=== PATIENT | male | born 1995 | race Caucasian/White ===

== ENCOUNTER 2018-06-27 14:57 | Inpatient (IN) ==
[2018-06-27 15:53] LABS: Bilirubin,Urine Small (Negative); Blood,Urine Negative (Negative); Clarity,Urine Clear (Clear); Color,Urine Dark Yellow (Yellow); Glucose,Urine (UA) Normal (Normal); Ketones,Urine 15 mg/dL (Negative); Leukocyte Esterase,Urine Negative (Negative); Nitrite,Urine Negative (Negative); PH,Urine 5.5 pH Units (5.0-8.0); Protein,Urine 100 mg/dL (Neg-Trace); Specific Gravity,Urine > 1.030 (1.010-1.025); Urobilinogen,Urine Normal (Normal)
[2018-06-27 15:55] LABS: Bacteria,Urine None Seen per hpf (None-Few); Hyaline Casts,Urine Few per lpf (None-Few); Squamous Epithelial Cell,Urine Moderate per lpf (None-Few); WBC,Urine 0-3 per hpf (0-3)
[2018-06-27 16:04] LABS: Amphetamine Screen,Urine Positive ng/mL (Cutoff=1000); Barbiturate Screen,Urine Negative ng/mL (Cutoff=200); Benzodiazepines Screen,Urine Negative ng/mL (Cutoff=200); Cannabinoid Screen,Urine Negative ng/mL (Cutoff = 50); Cocaine Screen,Urine Negative ng/mL (Cutoff= 300); Opiate Screen,Urine Negative ng/mL (Cutoff=300); Phencyclidine Screen,Urine Negative ng/mL (Cutoff=25)
--- NOTE | 2018-06-27 17:00 | Emergency Department Note ---
Disposition Clinical Impression: Suicidal ideation, Homicidal ideation, Methamphetamine abuse Disposition: Admitted As Inpatient Condition: Fair Time of Disposition: 20:46 Psych HPI - General Chief Complaint: ED Psychiatric Symptoms Stated Complaint: SI/HI Time Seen by Provider: 06/27/18 15:10 Source: patient Mode of arrival: ambulatory Limitations: no limitations Nursing Notes Reviewed: Yes Vital Signs Reviewed: Yes - History of Present Illness HPI Narrative: Patient is a 23-year-old male who presents to [facility] ED with a chief complaint of suicidal and homicidal ideation. States over the last few weeks he has been having these thoughts. States his plan is to stab himself and stabbed his girlfriend. Patient does admit to having firearms present in the house as well. Denies any prior attempts. However states he has been evaluated by a psychiatrist in the past but did not go back since the debbie asked to many questions. States he does have some intermittent sharp chest pains. No difficulty breathing, abdominal pain, problems with urination or bowel movements. Denies any nausea, vomiting, fever or chills. No problems with urination or bowel movements. Pt complaint: suicidal ideation, medical clearance request If medical clearance, reason: psychiatric condition Onset (ago): Just [employer] Duration: getting worse History of similar episodes: No Improves with: none Worsens with: none Context: recent drug abuse (meth) Alleged intoxication: No Associated Psychiatric Symptoms: suicidal ideation, homicidal ideation Associated symptoms: Denies: shortness of breath, nausea, vomiting Traumatic symptoms: denies traumatic injury Treatments prior to arrival: none Self harm or harm to others: admits thoughts of self harm, has plan, admits thoughts of harming others - Related Data Previous Rx's Medication Instructions Recorded Azithromycin [Zithromax] 250 mg PO DAILY #4 tablet 07/06/17 Loratadine/Pseudophed (12 HR) 1 each PO BID #[id number].er.[id number] 07/06/17 [Claritin D (12HR)] PredniSONE [Deltasone] 40 mg PO DAILY 4 Days tablet 07/06/17 Allergies Allergy/AdvReac Type Severity Reaction Status Date / Time No Known Allergies Allergy Verified 07/05/17 23:57 All systems ED: reviewed and negative except as stated. Past Medical History - Past Medical History Attestation: Yes The following information was validated with the patient. Source: patient Medical history: Reports: asthma Psychiatric history: Reports: no psych history - Social History Smoking Status: Current every day smoker Alcohol use: Reports: none Drug use: Reports: none Physical Exam - General Limitations: no limitations General appearance: alert - Head Head exam: atraumatic, normocephalic, normal inspection - Eye Eye exam: Present: EOMI - ENT ENT exam: normal exam, normal oropharynx, mucous membranes moist - Neck Neck exam: Present: normal inspection, full ROM, trachea midline - Chest Chest inspection: Present: normal inspection, symmetric chest wall rise - Respiratory Respiratory exam: Present: normal lung sounds bilaterally - Cardiovascular Cardiovascular exam: Present: normal rhythm, tachycardia, normal heart sounds - Abdominal Exam Abdominal exam: Present: soft, Non-Tender. Absent: tenderness, distention, guarding, rebound, rigidity - Extremities Exam Extremities exam: Present: normal inspection, full ROM. Absent: tenderness, pedal edema - Back Exam Back exam: Present: normal inspection, full ROM. Absent: tenderness - Neurological Exam Neurological exam: Present: alert, oriented X3 - Psychiatric Psychiatric exam: Present: normal affect, normal mood - Skin Skin exam: Present: warm, dry, intact, normal color Course Course Narrative: Patient seen and examined. Complaints of suicidal and homicidal ideation with a plan of stabbing himself and his girlfriend. Also complaining of some intermittent sharp chest pains that started 2 weeks ago not related to any exertional activities. We will get an EKG and chest x-ray as well as med clearance labwork. - Reevaluation(s) Reevaluation #1: Awaiting 1A eval and dispo. Time: 20:46 Vital Signs Temperature 99.4 F 06/27/18 15:00 Pulse Rate 121 06/27/18 15:00 Respiratory Rate 20 06/27/18 15:00 Blood Pressure 143/84 06/27/18 15:00 O2 Sat by Pulse Oximetry 97 06/27/18 15:00 Temperature 99.4 F 06/27/18 15:21 Pulse Rate 87 06/27/18 19:41 Respiratory Rate 20 06/27/18 19:41 Blood Pressure 116/68 06/27/18 19:41 O2 Sat by Pulse Oximetry 98 06/27/18 19:41 Oxygen Delivery Oxygen Delivery Room Air Psych - Medical Records Medical records reviewed: Yes I reviewed the patient's medical records. - Lab Data Lab results reviewed: Yes I reviewed the patient's lab results. Result diagrams: 06/27/18 16:43 06/27/18 16:43 Lab Results 06/27/18 06/27/18 06/27/18 Range/Units 15:28 15:28 16:43 WBC 15.3 H (4.3-11.1) K/mcL RBC 5.75 H (4.19-5.50) M/mcL Hgb 16.4 (12.9-16.9) g/dL Hct 48.5 (37.5-50.1) % MCV 84.3 (83.0-100.0) fL MCH 28.5 (28.0-33.3) pg MCHC 33.8 (31.6-35.5) g/dL RDW 13.6 (11.5-14.5) % Plt Count 277 (140-400) K/mcL MPV 10.8 (9.4-12.4) fL Immature Gran % 0.4 (0-4) % Seg Neutrophils % 78.3 % Lymphocytes % 14.2 % Monocytes % 6.3 % Eosinophils % 0.5 % Basophils % 0.3 % Neutrophils # 12.0 H (1.6-8.9) K/mcL Lymphocytes # 2.2 (0.6-4.6) K/mcL Monocytes # 1.0 (0.0-1.3) K/mcL Eosinophils # 0.1 (0.0-0.6) K/mcL Basophils # 0.1 (0.0-0.2) K/mcL Sodium (136-145) mEq/L Potassium (3.5-5.1) mEq/L Chloride (98-107) mEq/L Carbon Dioxide (23-29) mEq/L BUN (6-20) mg/dL Creatinine (0.70-1.30) mg/dL Est GFR ( Amer) (> 60) Est GFR (Non-Af Amer) (> 60) BUN/Creatinine Ratio (6-26) Glucose (70-105) mg/dL Calculated Osmolality (280-300) Calcium (8.6-10.3) mg/dL TSH (0.340-5.600) mcIU/mL Urine Color Dark Yellow (Yellow) Urine Clarity Clear (Clear) Urine pH 5.5 (5.0-8.0) pH Units Ur Specific [place] > 1.030 H (1.010-1.025) Urine Protein 100 H (Neg-Trace) mg/dL Urine Glucose (UA) Normal (Normal) mg/dL Urine Ketones 15 H (Negative) mg/dL Urine Blood Negative (Negative) Urine Nitrite Negative (Negative) Urine Bilirubin Small H (Negative) Urine Urobilinogen Normal (Normal) mg/dL Ur Leukocyte Esterase Negative (Negative) Urine Microscopic RBC 5-15 H (0-3) per hpf Urine Microscopic WBC 0-3 (0-3) per hpf Ur Squamous Epith Cells Moderate H (None-Few) per lpf Urine Bacteria None Seen (None-Few) per hpf Hyaline Casts Few (None-Few) per lpf Salicylates (15.0-30.0) mg/dL Urine Opiates Screen Negative (Iaginn=962) ng/mL Acetaminophen (10-20) mcg/mL Ur Barbiturates Screen Negative (Pzpyzw=183) ng/mL Ur Phencyclidine Scrn Negative (Cutoff=25) ng/mL Ur Amphetamines Screen Positive H (Fudxed=9240) ng/mL U Benzodiazepines Scrn Negative (Ihtjiv=619) ng/mL Urine Cocaine Screen Negative (Cutoff= 300) ng/mL U Marijuana (THC) Screen Negative (Cutoff = 50) ng/mL Ur Drug Screen Interp See Below Ethyl Alcohol (Less than 10) mg/dL 06/27/18 06/27/18 Range/Units 16:43 16:43 WBC (4.3-11.1) K/mcL RBC (4.19-5.50) M/mcL Hgb (12.9-16.9) g/dL Hct (37.5-50.1) % MCV (83.0-100.0) fL MCH (28.0-33.3) pg MCHC (31.6-35.5) g/dL RDW (11.5-14.5) % Plt Count (140-400) K/mcL MPV (9.4-12.4) fL Immature Gran % (0-4) % Seg Neutrophils % % Lymphocytes % % Monocytes % % Eosinophils % % Basophils % % Neutrophils # (1.6-8.9) K/mcL Lymphocytes # (0.6-4.6) K/mcL Monocytes # (0.0-1.3) K/mcL Eosinophils # (0.0-0.6) K/mcL Basophils # (0.0-0.2) K/mcL Sodium 138 (136-145) mEq/L Potassium 3.2 L (3.5-5.1) mEq/L Chloride 108 H (98-107) mEq/L Carbon Dioxide 20 L (23-29) mEq/L BUN 11 (6-20) mg/dL Creatinine 0.80 (0.70-1.30) mg/dL Est GFR ( Amer) > 60 (> 60) Est GFR (Non-Af Amer) > 60 (> 60) BUN/Creatinine Ratio 14 (6-26) Glucose 103 (70-105) mg/dL Calculated Osmolality 286 (280-300) Calcium 9.7 (8.6-10.3) mg/dL TSH 0.911 (0.340-5.600) mcIU/mL Urine Color (Yellow) Urine Clarity (Clear) Urine pH (5.0-8.0) pH Units Ur Specific [place] (1.010-1.025) Urine Protein (Neg-Trace) mg/dL Urine Glucose (UA) (Normal) mg/dL Urine Ketones (Negative) mg/dL Urine Blood (Negative) Urine Nitrite (Negative) Urine Bilirubin (Negative) Urine Urobilinogen (Normal) mg/dL Ur Leukocyte Esterase (Negative) Urine Microscopic RBC (0-3) per hpf Urine Microscopic WBC (0-3) per hpf Ur Squamous Epith Cells (None-Few) per lpf Urine Bacteria (None-Few) per hpf Hyaline Casts (None-Few) per lpf Salicylates < 2.5 L (15.0-30.0) mg/dL Urine Opiates Screen (Jaivzn=898) ng/mL Acetaminophen < 10 L (10-20) mcg/mL Ur Barbiturates Screen (Zxlbks=489) ng/mL Ur Phencyclidine Scrn (Cutoff=25) ng/mL Ur Amphetamines Screen (Ajynhg=4854) ng/mL U Benzodiazepines Scrn (Kphdeh=380) ng/mL Urine Cocaine Screen (Cutoff= 300) ng/mL U Marijuana (THC) Screen (Cutoff = 50) ng/mL Ur Drug Screen Interp Ethyl Alcohol < 10 (Less than 10) mg/dL - Radiology Data Radiology results reviewed: Yes I reviewed the patient's radiology results. - EKG Data EKG attestation: Yes I reviewed and interpreted this EKG. EKG results narrative: EKG done at 1715 shows sinus tachycardia with a rate of [address] elevation or depression noted. Normal axis. Psychiatric Medical Clearance - Medical Clearance Checklist Does the patient have a NEW psychiatric condition?: Yes Any abnormalities indicating possible medical illness?: No Any history of medical issues?: No Medical History: No Social History Section defined Any abnormal vital signs prior to transfer?: No Current Vitals: Last Vital Signs Temp 99.4 F 06/27/18 15:21 Pulse 87 06/27/18 19:41 Resp 20 06/27/18 19:41 BP 116/68 06/27/18 19:41 Pulse Ox 98 06/27/18 19:41 Is the patient intoxicated or cognitively impaired?: No Psychiatric Lab Panel: Drug Levels and Toxicity 06/27/18 06/27/18 15:28 16:43 Urine Opiates Screen Negative Acetaminophen < 10 L Ur Barbiturates Screen Negative Ur Phencyclidine Scrn Negative Ur Amphetamines Screen Positive H U Benzodiazepines Scrn Negative Urine Cocaine Screen Negative U Marijuana (THC) Screen Negative Ethyl Alcohol < 10 Any abnormalities on the physical exam?: No Any abnormal labs?: No Abnormal Labs: Abnormal lab results WBC 15.3 K/mcL (4.3-11.1) H 06/27/18 16:43 RBC 5.75 M/mcL (4.19-5.50) H 06/27/18 16:43 Neutrophils # 12.0 K/mcL (1.6-8.9) H 06/27/18 16:43 Potassium 3.2 mEq/L (3.5-5.1) L 06/27/18 16:43 Chloride 108 mEq/L (98-107) H 06/27/18 16:43 Carbon Dioxide 20 mEq/L (23-29) L 06/27/18 16:43 Ur Specific [place] > 1.030 (1.010-1.025) H 06/27/18 15:28 Urine Protein 100 mg/dL (Neg-Trace) H 06/27/18 15:28 Urine Ketones 15 mg/dL (Negative) H 06/27/18 15:28 Urine Bilirubin Small (Negative) H 06/27/18 15:28 Urine Microscopic RBC 5-15 per hpf (0-3) H 06/27/18 15:28 Ur Squamous Epith Cells Moderate per lpf (None-Few) H 06/27/18 15:28 Salicylates < 2.5 mg/dL (15.0-30.0) L 06/27/18 16:43 Acetaminophen < 10 mcg/mL (10-20) L 06/27/18 16:43 Ur Amphetamines Screen Positive ng/mL (Qaoqqt=9513) H 06/27/18 15:28 Does the patient require durable medical equiptment?: No Is the patient ambulatory?: Yes Is the patient a fall risk?: No Has the patient been medically cleared?: Yes Any acute medical condition require Tx prior to transfer?: No Attestation Statement - Attestation Attestation: I, Phu Chacon, examined this patient and my medical decision-making was reviewed with the BONBON DIPPER/PA/Advanced Practice Nurse/Resident Physician. I agree with the documented findings, disposition and treatment plan as described except to the extent set forth below. 23-year-old male presents emergency department for further evaluation of suicidal or homicidal ideation. Patient has been using a large amount of methamphetamines over the past few days, he had believed that somebody was going to kill him. Patient had apparently made statements to the significant other and her mother that he was going to kill himself and his significant other. Patient's plan was to stab himself and his significant other. Patient reports having the symptoms intermittently over the past few days. Patient will be medically cleared and evaluated by behavioral health. Disposition pending at this time. Patient evaluated by behavioral health and found him to require inpatient treatment. Patient will be admitted to the hospital to1A
[2018-06-27 17:08] LABS: Basophils # 0.1 K/mcL (0.0-0.2); Basophils % 0.3 %; Eosinophils # 0.1 K/mcL (0.0-0.6); Eosinophils % 0.5 %; Hematocrit 48.5 % (37.5-50.1); Hemoglobin 16.4 g/dL (12.9-16.9); Immature Granulocytes % 0.4 % (0-4); Lymphocytes # 2.2 K/mcL (0.6-4.6); Lymphocytes % 14.2 %; Mean Corpuscular HGB Conc 33.8 g/dL (31.6-35.5); Mean Corpuscular Hemoglobin 28.5 pg (28.0-33.3); Mean Corpuscular Volume 84.3 fL (83.0-100.0); Mean Platelet Volume 10.8 fL (9.4-12.4); Monocytes % 6.3 %; Platelet Count 277 K/mcL (140-400); Red Blood Count 5.75 M/mcL (4.19-5.50); Red Cell Distribution Width 13.6 % (11.5-14.5); Segmented Neutrophils % 78.3 %
[2018-06-27 17:47] LABS: Acetaminophen < 10 mcg/mL (10-20); BUN/Creatinine Ratio 14 (6-26); Blood Urea Nitrogen 11 mg/dL (6-20); Calcium 9.7 mg/dL (8.6-10.3); Carbon Dioxide 20 mEq/L (23-29); Chloride 108 mEq/L (98-107); Ethanol < 10 mg/dL (Less than 10); Glucose 103 mg/dL (70-105); Osmolality,Calculated 286 (280-300); Potassium 3.2 mEq/L (3.5-5.1); Salicylate < 2.5 mg/dL (15.0-30.0); Sodium 138 mEq/L (136-145); eGFR For Non-African Americans > 60 (> 60)
[2018-06-27] MEDS ORDERED: Potassium Chloride Elixir 20 MEQ/15 ML UDC PO ONE (18:08)
[2018-06-27] MEDS ORDERED: *HR* LORazepam 2 MG/ML VIAL IM PRN (23:06)
[2018-06-27] MEDS ORDERED: *HR* LORazepam 1 MG TABLET PO PRN (23:06)
[2018-06-27] MEDS ORDERED: MOM Conc 10 ML UD.LIQ PO PRN (23:06)
[2018-06-27] MEDS ORDERED: Mag Hydrox/Al Hydrox/Simeth 30 ML UDC PO PRN (23:06)
[2018-06-27] MEDS ORDERED: Haloperidol Lactate 5 MG/ML VIAL IM PRN (23:06)
[2018-06-27] MEDS: Nicotine 2 MG GUM BC PRN (23:50)
[2018-06-27] MEDS: traZODone 50 MG TABLET PO PRN (23:51)
[2018-06-28] MEDS ORDERED: *HR* LORazepam 1 MG TABLET PO PRN (03:05)
[2018-06-28] MEDS ORDERED: *HR* LORazepam 2 MG/ML VIAL IM PRN (03:05)
[2018-06-28] MEDS: Nicotine 2 MG GUM BC PRN (09:59)
--- NOTE | 2018-06-28 11:20 | Psychiatry History & Physical ---
Date of Encounter: 06/28/18 Time of Encounter: 10:30 History of Present Illness Patient Stated Chief Complaint: I was having thoughts to harm myself while I was high Medicare Admission Attestation: For traditional Medicare patients the provided hospital inpatient services are reasonable and necessary and in the case of services not specified as inpatient -only under 42 CFR 419.22 (n), that they are appropriately provided as inpatient services in accordance 42 CFR 412.3. For Critical Access Hospital the patient may reasonably be expected to be discharged or transferred to a hospital within 96 hours after admission to the Critical Access Hospital. History of Present Illness: Upon admssion to the ER, Patient is a 23-year-old male who presents to [facility] ED with a chief complaint of suicidal and homicidal ideation. States over the last few weeks he has been having these thoughts. States his plan is to stab himself and stabbed his girlfriend. Patient does admit to having firearms present in the house as well. Denies any prior attempts. However states he has been evaluated by a psychiatrist in the past but did not go back since the debbie asked to many questions. States he does have some intermittent sharp chest pains. No difficulty breathing, abdominal pain, problems with urination or bowel movements. Denies any nausea, vomiting, fever or chills. No problems with urination or bowel movements. Pt is a 23 yo ,, male, never , with 1 son 7 yo who presents for depression, anxiety and suicidal/homicidal ideations. Pt noted he currently lives in [place], [place] with my mom and dad. Pt noted recent exacerbation of depression. Pt states when I came in I thought I wanted to hurt myself. Pt noted I came in because I needed some help I feel much better now. I feel safe and comfortable on the unit. Pt denied any side effects to current medications. Pt was in agreement with current treatment plan. Pt noted that he is doing alright today. Pt noted he slept 12 hours. Pt noted his appetite is I can eat but I am not really hungry. Pt rated his depression a 2, on a scale of zero to ten with ten being the worst and zero being none. Pt rate his anxiety a 6....I don't like hospitals, on the same scale. Pt denied any auditory or visual hallucinations. Pt denied any current thoughts to harm himself or anyone else. PT noted his mom and dad are still alive and live with pt. Pt noted that his highest level of education is [employer] with vocational school and [employer]. Pt noted he is currently unemployed due to "relationship problems and drug use."Pt denied any inpt psychiatric hospitalizations. Pt denied any previous suicide attempts. Pt denied any family hx of suicides. PT denied any family mental health hx. Pt denied TBI, Seizures, HEP C or HIV. No TD noted, AIMS=0 MSE: Alert and Oriented x3 Appearance: appropriately groomed dressed in civilian attire Behavior: Polite, friendly, courteous Speech: fluent, normal tone, normal rate Mood: better but I am depression Affect: mood congruent Thought content: no HI noted, no SI noted, no delusions noted Psychosis: none noted, currently does not appear to be responding to internal stimuli. Thought Process: linear logical, goal directed Judgment: fair. Insight: fair. Assessment/Plan 1. Interval hx 2. Continue current medications 3. Review current labs 4. Pt had an opportunity to ask questions and discuss current treatment plan. 5. Supportive therapy was provided 6. Pt encouraged to consider group or individual therapy 7. Pt was in agreement with treatment plan. 8. Pt was educated on the risks benefits and side effects of current medications. 9. Start wellbutrin 150 mg PO QAM for mood/amphetamine addicition. Past Med Surg Social Fam HX - Past Medical History Medical history: asthma - Past Psychiatric History Psychiatric history: Reports: depression Family psychiatric history: No Family History of Suicide: None - Social History Smoking Status: Current every day smoker Alcohol use: none Drug use: none Medications & Allergies No Known Home Drugs 06/28/18 [History] 3 Allergy/AdvReac Type Severity Reaction Status Date / Time No Known Allergies Allergy Verified 06/28/18 10:34 Review of Systems Constitutional: Denies: fever, chills, weakness, weight change Eyes: Denies: eye pain, vision change Ears, Nose, Throat: Denies: ear pain, throat pain, dental pain, hearing loss, congestion Cardiovascular: Denies: chest pain, palpitations, dyspnea on exertion Respiratory: Denies: cough, dyspnea, wheezes Gastrointestinal: Denies: abdominal pain, nausea, vomiting, diarrhea, constipation Genitourinary male: Denies: urgency, dysuria, frequency, genital lesions Musculoskeletal: Denies: joint swelling, joint pain Integumentary: Denies: rash, lesions, pruritus Neurological: Denies: headache, weakness, numbness, memory loss Psychiatric: Reports: depression, anxiety, suicidal ideation, homicidal ideation Endocrine: Denies: fatigue, heat or cold intolerance Hematologic/Lymphatic: Denies: easy bruising, lymphadenopathy Allergic/Immunologic: Denies: urticaria, itchy eyes Exam - HEENT Head exam IM: Present: atraumatic Eye exam IM: Present: EOMI, normal appearance, PERRL ENT exam IM: Present: normal exam - Neurological Neurological exam: Present: CN II-XII intact - Respiratory Respiratory exam IM: Present: CTAB - GI/Abdominal GI/Abdominal exam IM: Present: normal bowel sounds, soft. Absent: tenderness - Extremities Extremities exam IM: Present: full ROM - Skin Skin exam IM: Present: dry, warm - Constitutional Vitals: Temp Pulse Resp BP Pulse Ox 98.2 F 98 18 135/75 98 06/28/18 09:00 06/28/18 09:00 06/28/18 09:00 06/28/18 09:00 06/27/18 19:41 General appearance: age & developmentally appropriate, well-groomed, well- nourished - Musculoskeletal Gait: normal Station: relaxed Strength & Tone: normal for patient - Psychiatric Patient Orientation: Yes Person, Yes Time, Yes Place Level of alertness: Alert Behavior: calm, cooperative, agitated Psychomotor activity: Normal Eye Contact: Maintains Eye Contact Mood Description: Euthymic/stable Affect description: congruent with mood, full range Speech Volume: Normal Speech pattern: normal rate, normal rhythm, normal tone, fluent, spontaneous Language & Vocabulary: consistent with education Thought Process: Logical, Linear, Goal Oriented Thought Content: Yes Suicidal ideation, No Homicidal ideation, No Overt delusions Perceptual Disturbances: No Auditory hallucinations, No Visual hallucinations Attention Span Ability: Capable of Focused Attention Memory Description: Grossly Intact Patient Reliability: Reliable Historian Fund of knowledge: Yes abstraction ability, Yes average, Yes aware of current events Intelligence Estimate: Average Judgment: Limited Insight: Partial Results - Labs Labs: Laboratory Last Values WBC 15.3 K/mcL (4.3-11.1) H 06/27/18 16:43 RBC 5.75 M/mcL (4.19-5.50) H 06/27/18 16:43 Hgb 16.4 g/dL (12.9-16.9) 06/27/18 16:43 Hct 48.5 % (37.5-50.1) 06/27/18 16:43 MCV 84.3 fL (83.0-100.0) 06/27/18 16:43 MCH 28.5 pg (28.0-33.3) 06/27/18 16:43 MCHC 33.8 g/dL (31.6-35.5) 06/27/18 16:43 RDW 13.6 % (11.5-14.5) 06/27/18 16:43 Plt Count 277 K/mcL (140-400) 06/27/18 16:43 MPV 10.8 fL (9.4-12.4) 06/27/18 16:43 Immature Gran % 0.4 % (0-4) 06/27/18 16:43 Seg Neutrophils % 78.3 % 06/27/18 16:43 Lymphocytes % 14.2 % 06/27/18 16:43 Monocytes % 6.3 % 06/27/18 16:43 Eosinophils % 0.5 % 06/27/18 16:43 Basophils % 0.3 % 06/27/18 16:43 Neutrophils # 12.0 K/mcL (1.6-8.9) H 06/27/18 16:43 Lymphocytes # 2.2 K/mcL (0.6-4.6) 06/27/18 16:43 Monocytes # 1.0 K/mcL (0.0-1.3) 06/27/18 16:43 Eosinophils # 0.1 K/mcL (0.0-0.6) 06/27/18 16:43 Basophils # 0.1 K/mcL (0.0-0.2) 06/27/18 16:43 Sodium 138 mEq/L (136-145) 06/27/18 16:43 Potassium 3.2 mEq/L (3.5-5.1) L 06/27/18 16:43 Chloride 108 mEq/L (98-107) H 06/27/18 16:43 Carbon Dioxide 20 mEq/L (23-29) L 06/27/18 16:43 BUN 11 mg/dL (6-20) 06/27/18 16:43 Creatinine 0.80 mg/dL (0.70-1.30) 06/27/18 16:43 Est GFR ( Amer) > 60 (> 60) 06/27/18 16:43 Est GFR (Non-Af Amer) > 60 (> 60) 06/27/18 16:43 BUN/Creatinine Ratio 14 (6-26) 06/27/18 16:43 Glucose 103 mg/dL (70-105) 06/27/18 16:43 Calculated Osmolality 286 (280-300) 06/27/18 16:43 Calcium 9.7 mg/dL (8.6-10.3) 06/27/18 16:43 TSH 0.911 mcIU/mL (0.340-5.600) 06/27/18 16:43 Urine Color Dark Yellow (Yellow) 06/27/18 15:28 Urine Clarity Clear (Clear) 06/27/18 15:28 Urine pH 5.5 pH Units (5.0-8.0) 06/27/18 15:28 Ur Specific [place] > 1.030 (1.010-1.025) H 06/27/18 15:28 Urine Protein 100 mg/dL (Neg-Trace) H 06/27/18 15:28 Urine Glucose (UA) Normal mg/dL (Normal) 06/27/18 15:28 Urine Ketones 15 mg/dL (Negative) H 06/27/18 15:28 Urine Blood Negative (Negative) 06/27/18 15:28 Urine Nitrite Negative (Negative) 06/27/18 15:28 Urine Bilirubin Small (Negative) H 06/27/18 15:28 Urine Urobilinogen Normal mg/dL (Normal) 06/27/18 15:28 Ur Leukocyte Esterase Negative (Negative) 06/27/18 15:28 Urine Microscopic RBC 5-15 per hpf (0-3) H 06/27/18 15:28 Urine Microscopic WBC 0-3 per hpf (0-3) 06/27/18 15:28 Ur Squamous Epith Cells Moderate per lpf (None-Few) H 06/27/18 15:28 Urine Bacteria None Seen per hpf (None-Few) 06/27/18 15:28 Hyaline Casts Few per lpf (None-Few) 06/27/18 15:28 Salicylates < 2.5 mg/dL (15.0-30.0) L 06/27/18 16:43 Urine Opiates Screen Negative ng/mL (Chqqxb=465) 06/27/18 15:28 Acetaminophen < 10 mcg/mL (10-20) L 06/27/18 16:43 Ur Barbiturates Screen Negative ng/mL (Ffbzjs=917) 06/27/18 15:28 Ur Phencyclidine Scrn Negative ng/mL (Cutoff=25) 06/27/18 15:28 Ur Amphetamines Screen Positive ng/mL (Idihlo=6895) H 06/27/18 15:28 U Benzodiazepines Scrn Negative ng/mL (Dxjhyv=252) 06/27/18 15:28 Urine Cocaine Screen Negative ng/mL (Cutoff= 300) 06/27/18 15:28 U Marijuana (THC) Screen Negative ng/mL (Cutoff = 50) 06/27/18 15:28 Ur Drug Screen Interp See Below 06/27/18 15:28 Ethyl Alcohol < 10 mg/dL (Less than 10) 06/27/18 16:43 Assessment and Plan (1) Adjustment disorder Current visit: Yes Status: Acute Plan: Admit inpatient for safety and stabilization, Close observation, Suicide Precautions per unit protocol, Encourage participation in unit milieu, Group Therapy, Monitor sleep, Monitor appetite Risks, benefits, side effects, alternatives discussed w/pt: Yes Patient agreeable to treatment: Yes Plans for Post Hospital Care: at Home Qualifiers: Adjustment disorder type: with mixed anxiety and depressed mood Qualified Code(s): F43.23 - Adjustment disorder with mixed anxiety and depressed mood (2) Suicidal ideation Current visit: Yes Status: Acute Plan: Admit inpatient for safety and stabilization, Close observation, Suicide Precautions per unit protocol, Encourage participation in unit milieu, Group Therapy, Monitor sleep, Monitor appetite Risks, benefits, side effects, alternatives discussed w/pt: Yes Patient agreeable to treatment: Yes Plans for Post Hospital Care: at Home (3) Homicidal ideation Current visit: Yes Status: Acute Plan: Admit inpatient for safety and stabilization, Close observation, Suicide Precautions per unit protocol, Encourage participation in unit milieu, Group Therapy, Monitor sleep, Monitor appetite Risks, benefits, side effects, alternatives discussed w/pt: Yes Patient agreeable to treatment: Yes Plans for Post Hospital Care: at Home (4) Methamphetamine abuse Current visit: Yes Status: Acute Plan: Admit inpatient for safety and stabilization, Close observation, Suicide Precautions per unit protocol, Encourage participation in unit milieu, Group Therapy, Monitor sleep, Monitor appetite Risks, benefits, side effects, alternatives discussed w/pt: Yes Patient agreeable to treatment: Yes Plans for Post Hospital Care: at Home
[2018-06-28] MEDS: Ibuprofen 400 MG TABLET PO PRN ×2 (11:36→19:41)
[2018-06-28] MEDS: BuPROPion XL (24 HR) 150 MG TABLET PO SCH (12:13)
[2018-06-28] MEDS: Nicotine 21 MG PATCH.TD24 TD SCH (15:07)
[2018-06-28] MEDS: hydrOXYzine pamoate 25 MG CAPSULE PO PRN ×2 (15:45→20:58)
[2018-06-28] MEDS: traZODone 50 MG TABLET PO PRN (20:58)
[2018-06-29] MEDS: Nicotine 21 MG PATCH.TD24 TD SCH (09:05)
[2018-06-29] MEDS: BuPROPion XL (24 HR) 150 MG TABLET PO SCH (09:06)
--- NOTE | 2018-06-29 09:55 | Discharge Summary ---
Date of Encounter: 06/29/18 Time of Encounter: 09:15 Diagnosis - Discharge Diagnosis (1) Adjustment disorder Status: Acute Qualifiers: Adjustment disorder type: with mixed anxiety and depressed mood Qualified Code(s): F43.23 - Adjustment disorder with mixed anxiety and depressed mood (2) Suicidal ideation Status: Acute (3) Homicidal ideation Status: Acute (4) Methamphetamine abuse Status: Acute Medications - Discharge Medications Prescriptions: BuPROPion XL (24 HR) [Wellbutrin Xl] 150 mg PO DAILY #30 tab.er.24h hydrOXYzine pamoate [HydrOXYzine Pamoate] 25 mg PO TID PRN #90 capsule PRN Reason: Anxiety traZODone [TraZODone] 50 mg PO HS PRN #30 tablet PRN Reason: Insomnia BuPROPion XL (24 HR) [Wellbutrin Xl] 150 mg PO DAILY #30 tab.er.24h 06/29/18 [Rx ] hydrOXYzine pamoate [HydrOXYzine Pamoate] 25 mg PO TID PRN #90 capsule 06/29/18 [Rx] traZODone [TraZODone] 50 mg PO HS PRN #30 tablet 06/29/18 [Rx] 3 Allergy/AdvReac Type Severity Reaction Status Date / Time No Known Allergies Allergy Verified 06/28/18 10:34 Provider Date of admission: 06/27/18 22:19 Primary care physician: PCP NONE Discharging clinician: Topher Petit Psychiatry Exam - Constitutional Vitals: Temp Pulse Resp BP Pulse Ox 97.7 F 94 16 102/70 98 06/28/18 20:19 06/28/18 20:19 06/28/18 20:19 06/28/18 20:19 06/27/18 19:41 General appearance: age & developmentally appropriate, well-groomed, well- nourished - Musculoskeletal Gait: normal Station: relaxed Strength & Tone: normal for patient - Psychiatric Patient Orientation: Yes Person, Yes Time, Yes Place Level of alertness: Alert Behavior: calm, cooperative Psychomotor activity: Normal Eye Contact: Maintains Eye Contact Mood Description: Euthymic/stable Affect description: congruent with mood, full range Speech Volume: Normal Speech pattern: normal rate, normal rhythm, normal tone, fluent, spontaneous Language & Vocabulary: consistent with education Thought Process: Linear, Goal Oriented Thought Content: No Suicidal ideation, No Homicidal ideation, No Overt delusions Perceptual Disturbances: No Auditory hallucinations, No Visual hallucinations Attention Span Ability: Capable of Focused Attention Memory Description: Grossly Intact Patient Reliability: Reliable Historian Fund of knowledge: Yes abstraction ability, Yes aware of current events Intelligence Estimate: Average Judgment: Limited Insight: Partial Hospital Course Hospital course: Pt is a 23 yo ,, male, never , with 1 son 7 yo who presents for depression, anxiety and suicidal/homicidal ideations. Pt noted he currently lives in [place], [place] with my mom and dad. Pt noted recent exacerbation of depression. Pt states when I came in I thought I wanted to hurt myself. Pt noted I feel soooo much better, I am ready to go home. Pt noted he feels safe and comfortable for discharge home. Pt denied any side effects to current medications. Pt was in agreement with current treatment plan. Pt noted that he is doing alright today. Pt noted he slept 8 hours. Pt noted his appetite is much better. Pt rated his depression a 0, on a scale of zero to ten with ten being the worst and zero being none. Pt rate his anxiety a 0, on the same scale. Pt denied any auditory or visual hallucinations. Pt denied any current thoughts to harm himself or anyone else. Patient noted a significant reeducation in his depression and anxiety during his stay at [facility]. Pt noted that he slowly improved to the point that he was comfortable and safe to D/C home. Pt noted he felt his medications were working well and denied any current side effects. Treatment team encouraged Pt to stay out of bed and try to find activities to do, verbalized understanding. pt reported that he felt safe on the unit and comfortable for Home with his family. Pt Denied suicidal/homicidal ideations, denied any problems or concerns with medications or side effects. PT voiced progression towards treatment goals and was offered a copy of updated treatment plan completed during visit today. Denied any immediate needs or concerns. Pt denied any access to guns or weapons. Pt throughout his stay on [facility] pt felt like his medications were working and felt comfortable being discharged on these medications. Pt was advised to take all medications as prescribed, follow up with all scheduled appointments and abstain from any alcohol or illicit substances. Pt was in agreement. Pt felt safe and comfortable to be discharged to his home and follow up with outpt mental health. Pt was very optimistic about his D/C. Pt felt safe and comfortable for D/C. The patient was educated primarily by verbal means about his diagnoses and their manifestations in his life. The option for treatment including group individual therapy programming was offered to his and the use of medications with all their potential risks, benefits, and side-effects were discussed with the pt at length. Pt was given the opportunity to ask questions and he participated in the treatment and planning process. Pt felt ready and eager to be discharged from the from the [facility] unit to be discharged home. Pt felt he was safe for this disposition. Pt was considered to be able to participate in informed consent and decision-making with respect to medical, legal and financial issues at the time of his discharge from the [facility]. Pt denied TBI, Seizures, HEP C or HIV. No TD noted, AIMS=0 Assessment/Plan 1. Interval hx 2. Continue current medications 3. Review current labs 4. Pt had an opportunity to ask questions and discuss current treatment plan. 5. Supportive therapy was provided 6. Pt encouraged to consider group or individual therapy 7. Pt was in agreement with treatment plan. 8. Pt was educated on the risks benefits and side effects of current medications. 9. Continue wellbutrin 150 mg PO QAM for mood/amphetamine addicition. 10 abstain from any alcohol or illict substances. 11. follow up with all sheduled appointments. 12. D/C Pt home Time spent discussing smoking cessation with patient: 3 to 10 minutes Does patient wish to continue nicotine replacement upon disc: No - Time Spent with Patient Total time spent providing and/or coordinating discharge services: Greater than 30 minutes Assessment and Plan - Patient/Caregiver Discharge Instructions Activity: resume usual activities as tolerated Diet: regular diet - Follow up Plan [facility] up with: Gi Baz[facility]] - 07/06/18 1:30 pm (The above appointment is with Ginny Christianson. Please complete and bring the [facility] intake packet you were provided at the hospital to this appointment. When you come to your first appointment, you will be meeting with business office staff, meeting with a counselor, and developing a treatment plan. You will receive follow- up appointments for on-going services, which could include community support, mental health and substance abuse counseling, groups/partial hospitalization programming and medication assisted treatment. You will also need to bring the following to your first appointment as well: 1) proof of household income (two consecutive pay stubs, social security award letter, bank statement, statement [facility], child support statement, IRS 1040 or W2 form, or a statement from the person who financially supports you stating they help provide for your basic needs), 2) proof of residency (drivers license, a piece of mail showing your address, a statement from person you live with verifying you live at their address), 3) your social security card, 4) photo ID, 5) your insurance card (if you have commercial insurance you must call to obtain a prior authorization number before you arrive to your first appointment) and 6) if you do not have insurance but have applied for Medicaid, please bring verification you have applied. The above appointment(s) reflects first availability. You may contact the office regularly to check for cancellations that may allow you to be seen sooner.) Price Solis, [Resident] - 07/05/18 2:00 pm (The above appointment is with Dr. Solis for primary health care and medication management services. Please arrive 30 minutes early to complete paperwork. Please also bring your insurance card (or [facility] award letter), photo ID, and all medications in their original bottles to this appointment. If you are unable to keep this appointment, 24 hour business notice of cancellation is expected. If you miss your new patient appointment, you cannot be re-scheduled in this practice. The above appointment(s) reflects first availability. You may contact the office regularly to check for cancellations that may allow you to be seen sooner.) Overall status at discharge: Stable Disposition: Home, Self-Care Quality - Multiple Antipsychotics Patient discharged on 2 or more antipsychotic medications: No - Justification Documentation of: Other justification (Pt not on two antipsychotics) Procedures - Procedures Procedures: Medication Management, Crisis Stabilization, Supportive Therapy, Group Therapy, Psychoeducational Therapy
[2018-06-29 10:17] VITALS: BP 112/74
--- NOTE | 2018-07-01 23:44 | Electrocardiograph Report ---
[place] [id number] Test Date: 2018-06-27 Pat Name: Raad Fiore Department: EXAM17 Room: 1A23 Gender: M Obstetrics Technician: : 1995 Requested By: Priyanka Dowling Order Number: [id number] Reading MD: Shari King Measurements Intervals [place] Rate: 124 P: 67 NC: 153 QRS: 93 QRSD: 92 T: -13 QT: 307 QTc: 441 Interpretive Statements Sinus tachycardia Probable left atrial enlargement Borderline right axis deviation Borderline repolarization abnormality Electronically Signed On 07-01-2018 23:42:37 EDT by Shari King
== END 2018-06-29 10:35 | disposition home or self-care (01) | DRG 755 ==
LOC: EMEROOARM 14:57 → 1ANU 22:19
PROVIDERS: ADMIT Psychiatry & Neurology Psychiatry; ATTEND Psychiatry & Neurology Psychiatry